=== PATIENT | female | born 1995 | race Caucasian/White ===

== ENCOUNTER 2022-03-18 00:17 | Emergency (ER) | payer MEDICARE, OTHER ==
[~2022-03-18] VITALS: Ht 170.2 cm; Wt 59.0 kg
[2022-03-18] MEDS ORDERED: diphenhydrAMINE HCL 50 MG/ML VIAL ONE (00:28)
--- NOTE | 2022-03-18 00:28 | NUR ---
PATIENT IS SCREAMING , AGITATED AND NON- COOPERATIVE. MD WITH VERBAL ORDER FOR BENADRYL 50MG, ATIVAN 2MG AND HALDOL 5MG IM.
[2022-03-18] MEDS ORDERED: HALOPERIDOL LACTATE INJ 5 MG/ML VIAL ONE (00:29)
[2022-03-18] MEDS ORDERED: LORAZEPAM INJ 2 MG/ML VIAL ONE (00:29)
--- NOTE | 2022-03-18 00:34 | NUR ---
MOOSE FROM THE STREETS, WAS FOUND SCREAMING IN PARKING LOT THAT SHE IS SUICIDAL AND WANTS TO CUT HERSELF. 5150 HOLD BY [employer]. PT AGGITATED AT THIS TIME. PT IN GOWN, BELONGINGS COLLECTED AND PLACED IN LOCKER, SECURITY AT PT'S BEDSIDE FOR WANDING. SAFETY MEASURES IN PLACE. 1:1 SITTER AT PT'S BEDSIDE
--- NOTE | 2022-03-18 00:43 | NUR ---
DUC FULLER AND ATIVAN WAS WASTER WITHNESSED BY XIOM[place] DE SANTIAGO. THEY'RE NOT ADMINISTERED. PT IS CALM NOW AND MORE COOPERATIVE. WILL CONT TO MONITOR
--- NOTE | 2022-03-18 00:52 | NUR ---
BELLOWS CHARGER ASSEMBLER AT PT'S BEDSIDE. COVID ANTIGEN SWAB COLLECTED AND SENT TO LAB
--- NOTE | 2022-03-18 00:57 | NUR ---
PT TAKEN TO CT VIA [facility]
[2022-03-18 01:07] LABS: BASOPHILS # (AUTO) 0.1 K/uL (0.0-0.2); BASOPHILS % (AUTO) 1.2 % (0.0-2.0); EOSINOPHILS % (AUTO) 0.6 % (0.0-6.0); HEMATOCRIT 42 % (33-45); HEMOGLOBIN 14.5 g/dL (11.5-14.8); LYMPHOCYTES # (AUTO) 1.4 K/uL (0.8-4.8); LYMPHOCYTES % (AUTO) 17.7 % (20.0-44.0); MEAN CORPUSCULAR HGB CONC 35 g/dl (31.0-36.0); MEAN CORPUSCULAR VOLUME 91 fL (82-100); MONOCYTES # (AUTO) 1.3 K/uL (0.1-1.30); NEUTROPHILS # (AUTO) 5.2 K/uL (1.8-8.9); NEUTROPHILS % (AUTO) 64.5 % (43.0-81.0); PLATELET COUNT (AUTO) 429 K/uL (150-450); RED BLOOD CELL COUNT(AUTO) 4.58 MIL/uL (4.0-5.2)
--- NOTE | 2022-03-18 01:15 | NUR ---
OFFERED PT URINE CUP & BEDPAN; NOT ABLE TO URINATE AT THIS TIME . WILL F/U AND TRY AGAIN
[2022-03-18 01:20] LABS: CALCIUM, SERUM 8.9 mg/dL (8.5-10.1); CARBON DIOXIDE 26 mmol/L (21-32); CHLORIDE 103 mmol/L (98-107); CREATININE 1.1 mg/dL (0.6-1.3); GLUCOSE 90 mg/dL (74-106); POTASSIUM 2.9 mmol/L (3.5-5.1); SODIUM SERUM 138 mmol/L (136-145); UREA NITROGEN, BLOOD 13 mg/dL (7-18)
[2022-03-18 01:27] LABS: ALANINE AMINOTRANSFERASE 27 U/L (12-78); ALCOHOL, BLOOD < 3 mg/dL (0-0); ALKALINE PHOSPHATASE 70 U/L (46-116); ASPARTATE AMINOTRANSFERASE 32 U/L (15-37); BILIRUBIN,DIRECT 0.1 mg/dL (0.0-0.2); BILIRUBIN,TOTAL 0.3 mg/dL (0.2-1.0); TOTAL PROTEIN, SERUM 7.9 g/dL (6.4-8.2)
[2022-03-18 01:29] LABS: ACETAMINOPHEN 0 ug/ml (10-30)
--- NOTE | 2022-03-18 02:25 | NUR ---
OFFERED PT URINE CUP & BEDPAN; NOT ABLE TO URINATE AT THIS TIME . WILL F/U AND TRY AGAIN
--- NOTE | 2022-03-18 03:04 | NUR ---
URINE COLLECTED AND SENT TO LAB
[2022-03-18 03:13] LABS: BILIRUBIN,URINE SMALL (NEGATIVE); COLOR,URINE YELLOW (YELLOW); LEUKOCYTE ESTERASE ,URINE NEGATIVE (NEGATIVE); NITRITE, URINE NEGATIVE (NEGATIVE); PROTEIN,URINE TRACE mg/dl (NEGATIVE); UGLUCOSE NEGATIVE (NEGATIVE); UROBILINOGEN,URINE 0.2 EU/dL (0.2)
--- NOTE | 2022-03-18 05:42 | NUR ---
SPOKE TO JOY TORRES TO EVALUATE THE PT
--- NOTE | 2022-03-18 06:01 | NUR ---
JOY TORRES AT BED SIDE
[2022-03-18] MEDS ORDERED: POTASSIUM CHLORIDE 20 MEQ TAB.PRT.SR PO ONE ×2 (06:30→06:43)
[2022-03-18 08:20] LABS: BAND % (MANUAL) 2 % (0.0-5.0); EOSINOPHILS % (MANUAL) 2 % (0-4); LYMPHOCYTES % (MANUAL) 16 % (16-48); MONOCYTES % (MANUAL) 13 % (0-11.0); NEUTROPHILS % (MANUAL) 67 (42-76)
--- NOTE | 2022-03-18 09:42 | NUR ---
CASE PRESENTED TO [facility]. SPOKE TO KAILA. [facility] FAXED.
[2022-03-18 10:00] VITALS: BP 120/76
--- NOTE | 2022-03-18 10:20 | NUR ---
ACCEPTED AT [facility] UNDER DR PACHECO GOING TO ADULT UNIT 1 NUMBER FOR REPORT: [phone] EXT [phone]
--- NOTE | 2022-03-18 10:40 | NUR ---
TRANSPORT ETA 1140 VIA [facility].
--- NOTE | 2022-03-18 11:56 | NUR ---
REPORT GIVEN TO FELIX FOR ELIZABETH
--- NOTE | 2022-03-18 12:02 | NUR ---
PICKED UP BY TRANSPORT IN STABLE CONDITION
== END 2022-03-18 12:20 ==
LOC: ER 00:19
DX: R45.851 Suicidal ideations (principal); F31.9 Bipolar disorder, unspecified; Z59.00 Homelessness unspecified; Z20.822 Contact with and (suspected) exposure to COVID-19; Z91.52 Personal history of nonsuicidal self-harm; S00.83XA Contusion of other part of head, initial encounter; X79.XXXA Intentional self-harm by blunt object, initial encounter; Y92.410 Unspecified street and highway as the place of occurrence of the external cause
CPT/HCPCS: 99285; 70450; 85025; 80048; 80076; 85007; 81003; 36415; 87426; 80143; 80320; 80307; J2060; J1200; J1630; C9803; G0480